=== PATIENT | male | born 1960 | race Caucasian/White ===

== ENCOUNTER 2020-09-28 06:12 | Day surgery (SDC) | payer OTHER, SELFPAY ==
[2020-09-21 15:06] VITALS: BMI 33.6
--- NOTE | 2020-09-24 11:21 | HO.ANESPROP2 ---
Documented by User: Bianka Watts 09/24/20 11:22 HPI - Anesthesia Eval Consult details Narrative: 60yo M for Colonoscopy PMFSH Past Medical History Medical History Anxiety COVID-19 vaccine series completed High cholesterol Hx of gastroesophageal reflux (GERD) Hx of hiatal hernia Hypertension Panic attacks Seasonal allergies Surgical History Surgical History History of esophagogastroduodenoscopy (EGD) Hx of colonoscopy Hx of hand surgery Social History Social History Smoking Status: Never smoker Use of substances other than those prescribed or required for medical reasons: No Have you been hit, kicked, punched, or otherwise hurt by someone within the past year? If so, by whom?: No Are you DNR?: No Advance Directives: No Advance Directives Information Provided: No Advance Directives on File: No Meds Allergies Allergy/AdvReac Type Severity Reaction Status Date / Time No Known Allergies Allergy Verified 09/28/20 07:16 Home Medications Medication Instructions Recorded Confirmed Last Taken Type acetaminophen 2 tab PO Q8H PRN 09/21/20 09/21/20 Unknown History atorvastatin 1 tab PO BEDTIME 09/21/20 09/21/20 Unknown History baclofen 1 tab PO TID PRN 09/21/20 09/21/20 Unknown History bisacodyl tab PO DIRECTED 09/21/20 Unknown History cetirizine 1 tab PO DAILY 09/21/20 09/21/20 Unknown History cholecalciferol (vitamin D3) 1 tab PO DAILY 09/21/20 09/21/20 Unknown History clonazepam [Klonopin] 1 tab PO BID 09/21/20 09/21/20 09/28/20 05:00 History fluticasone propionate 2 spray INTRANASAL DAILY 09/21/20 09/21/20 Unknown History lisinopril 1 tab PO BID 09/21/20 09/21/20 09/28/20 05:00 History multivitamin 1 tab PO DAILY 09/21/20 09/21/20 Unknown History omega-3 acid ethyl esters 1 cap PO BID 09/21/20 09/21/20 Unknown History omega-3 fatty acids-fish oil [Fish 1 cap PO BID 09/21/20 09/21/20 Unknown History Oil] omeprazole 1 cap PO QAM 09/21/20 09/21/20 Unknown History peg [id number] [Dry drp OPHTHALMIC (EYE) 09/21/20 Unknown History Eye Relief] polyethylene glycol 3350 PO DIRECTED 09/21/20 Unknown History polyvinyl alcohol [Artificial 1 drp OPHTHALMIC (EYE) 09/21/20 Unknown History Tears (polyvin alc)] zolpidem 1 tab PO BEDTIME PRN 09/21/20 09/21/20 Unknown History Exam Exam Date and Time: September 24, 2020 1121 Height,Weight and Vital Signs: Height 5 ft 1 in Weight 80.739 kg Assessment and Plan Assessment Anesthesia Assessment: Chart Reviewed Documented by User: Sylvester Cain 09/28/20 07:24 [facility] Past Medical History Medical History Anxiety COVID-19 vaccine series completed High cholesterol Hx of gastroesophageal reflux (GERD) Hx of hiatal hernia Hypertension Panic attacks Seasonal allergies Surgical History Surgical History History of esophagogastroduodenoscopy (EGD) Hx of colonoscopy Hx of hand surgery Social History Social History Smoking Status: Never smoker Use of substances other than those prescribed or required for medical reasons: No Have you been hit, kicked, punched, or otherwise hurt by someone within the past year? If so, by whom?: No Are you DNR?: No Advance Directives: No Advance Directives Information Provided: No Advance Directives on File: No Meds Allergies Allergy/AdvReac Type Severity Reaction Status Date / Time No Known Allergies Allergy Verified 09/28/20 07:16 Home Medications Medication Instructions Recorded Confirmed Last Taken Type acetaminophen 2 tab PO Q8H PRN 09/21/20 09/21/20 Unknown History atorvastatin 1 tab PO BEDTIME 09/21/20 09/21/20 Unknown History baclofen 1 tab PO TID PRN 09/21/20 09/21/20 Unknown History bisacodyl tab PO DIRECTED 09/21/20 Unknown History cetirizine 1 tab PO DAILY 09/21/20 09/21/20 Unknown History cholecalciferol (vitamin D3) 1 tab PO DAILY 09/21/20 09/21/20 Unknown History clonazepam [Klonopin] 1 tab PO BID 09/21/20 09/21/20 09/28/20 05:00 History fluticasone propionate 2 spray INTRANASAL DAILY 09/21/20 09/21/20 Unknown History lisinopril 1 tab PO BID 09/21/20 09/21/20 09/28/20 05:00 History multivitamin 1 tab PO DAILY 09/21/20 09/21/20 Unknown History omega-3 acid ethyl esters 1 cap PO BID 09/21/20 09/21/20 Unknown History omega-3 fatty acids-fish oil [Fish 1 cap PO BID 09/21/20 09/21/20 Unknown History Oil] omeprazole 1 cap PO QAM 09/21/20 09/21/20 Unknown History peg [id number] [Dry drp OPHTHALMIC (EYE) 09/21/20 Unknown History Eye Relief] polyethylene glycol 3350 PO DIRECTED 09/21/20 Unknown History polyvinyl alcohol [Artificial 1 drp OPHTHALMIC (EYE) 09/21/20 Unknown History Tears (polyvin alc)] zolpidem 1 tab PO BEDTIME PRN 09/21/20 09/21/20 Unknown History Exam Airway Mallampati Class: II TM Dist: >3cm Neck ROM: Full
[2020-09-28 06:59] VITALS: BP 137/94; PULSE 107; RESP 18; TEMP 36.5; O2SAT 97
[2020-09-28] MEDS: Lactated Ringers 1,000 ML 100 ML IVCONT (07:15)
[2020-09-28 08:14] VITALS: BP 93/54; PULSE 83; RESP 16; TEMP 36.3; O2SAT 98
--- NOTE | 2020-09-28 08:16 | P.BOP_ITS ---
Brief Operative Note Date of Service: 09/28/20 Pre-op diagnosis: Screening Post-op diagnosis: other (Colon polyps) Procedure: Colonoscopy to the cecum and TI with biopsy and removal of polyps Surgeon: Aleksandr Dejesus Anesthesia: MAC Was an Wastewater Treatment Supervisor used for this Procedure?: No Estimated blood loss (mL): 3.0 Pathology: other (A. Polyps at 20cm) Condition: stable Disposition: PACU
[2020-09-28 08:25] VITALS: BP 104/66; PULSE 97; RESP 16; TEMP 36.3; O2SAT 96
--- NOTE | 2020-09-28 08:42 | OP_ITS ---
SURGEON: Aleksandr Dejesus MD INDICATIONS: The patient presents for evaluation of colorectal cancer screening and personal history of tubular adenoma of the colon. Full consent has been obtained from him for this, including risks of bleeding and perforation. PREOPERATIVE DIAGNOSIS: POSTOPERATIVE DIAGNOSIS: PROCEDURE PERFORMED: Colonoscopy to the cecum and terminal ileum with biopsy and removal of polyps. ESTIMATED BLOOD LOSS: COMPLICATIONS: ANESTHESIA: Monitored anesthesia care. ASSISTANTS: SPECIMENS: PREOPERATIVE DIAGNOSES: Colorectal cancer screening and personal history of tubular adenoma of the colon. POSTOPERATIVE DIAGNOSES: Colorectal cancer screening and personal history of tubular adenoma of the colon, small colon polyps, diverticulosis and internal hemorrhoids. DESCRIPTION OF PROCEDURE: The patient was placed in the left lateral decubitus position. The digital rectal exam revealed no abnormalities. The Olympus video pediatric colonoscope was entered into the rectum and advanced easily to the cecum. Once in the cecum, I did identify normal-appearing cecal pouch with appendiceal orifice and a normal-appearing ileocecal valve. The terminal ileum was cannulated and appeared normal. Scope was withdrawn back in the colon. The entire cecum and ileocecal valve appeared normal. The scope was slowly withdrawn assessing all mucosal surfaces carefully. Preparation was excellent. At 20 cm, were 2 flat approximately 3 mm polyps, which were each biopsied and completely removed with cold biopsy forceps. I did not visualize any other polyps, colitis, nor angiodysplasia. There was a mild amount of sigmoid diverticulosis. In the rectum, scope was retroflexed visualizing small internal hemorrhoids, but no other pathology. The rectal mucosa appeared normal. The scope was straightened out and withdrawn from the patient. He tolerated the procedure well and was returned to the recovery area in stable condition. IMPRESSION: 1. Small colon polyps, status post biopsy and removal. 2. Diverticulosis. 3. Internal hemorrhoids. PLAN: The results of the biopsy will be checked. I would recommend a repeat colonoscopy in 5 years for further surveillance. He will otherwise see me on a p.r.n. basis. MD ALIE Steele/HERB / [id number]
== END 2020-09-28 09:11 | disposition home or self-care (01) ==
PROVIDERS: PCP Family Medicine; Visit Provider Internal Medicine
PROC: 0DJD8ZZ Inspection of Lower Intestinal Tract, Via Natural or Artificial Opening Endoscopic (ICD-10-PCS; CPT 45378; principal; 2020-09-28 07:30)
DX: Z12.11 Encounter for screening for malignant neoplasm of colon (principal); Z86.010 Personal history of colon polyps; D12.5 Benign neoplasm of sigmoid colon; K57.30 Diverticulosis of large intestine without perforation or abscess without bleeding; K64.8 Other hemorrhoids; K21.9 Gastro-esophageal reflux disease without esophagitis; I10 Essential (primary) hypertension; F41.0 Panic disorder [episodic paroxysmal anxiety]; J30.2 Other seasonal allergic rhinitis; Z79.51 Long term (current) use of inhaled steroids; Z79.899 Other long term (current) drug therapy
CPT/HCPCS: 45380; 88305

== ENCOUNTER 2021-08-10 08:26 | Emergency (ER) | payer OTHER, SELFPAY ==
[2021-08-10 08:59] VITALS: BP 158/87; PULSE 99; RESP 20; TEMP 37.1; O2SAT 96; BMI 33.2
--- NOTE | 2021-08-10 09:25 | ED.HA ---
HPI - Headache General Chief Complaint: Headache Stated Complaint: headaches Time Seen by Provider: 08/10/21 09:08 Source: patient Mode of arrival: ambulatory Limitations: no limitations History of Present Illness HPI Narrative: 61-year-old male presents to the ER with left-sided headache, left ear pain, nasal congestion and sinus pressure for the last 2 weeks. He reports it has been worsening slowly over this time. He has seasonal allergies and only takes his medications intermittently. He states the headache is mostly on the left side, dull, aching in nature. He has no vision changes, weakness, tingling, numbness. He states he has normal hearing in his left ear but he feels like it is full and there is pressure. He has green and yellow nasal discharge with pressure in his paranasal sinuses. He denies any fever or chills. No cough, shortness of breath, nausea, vomiting, chest pain. MD elicited complaint: headache Onset (ago): week(s) (2) Onset description: gradually Location: left Severity: mild Pain scale (0-10): 3 Quality & Timing: dull Exacerbating factors: none Relieving factors: nothing Associated symptoms: other (Nasal congestion and left ear pain) Treatments prior to arrival: none Related Data Home Medications Medication Instructions Recorded Confirmed acetaminophen 325 mg tablet 2 tab PO Q8H PRN 09/21/20 09/21/20 atorvastatin 40 mg tablet 1 tab PO BEDTIME 09/21/20 09/21/20 baclofen 10 mg tablet 1 tab PO TID PRN 09/21/20 09/21/20 bisacodyl 5 mg tablet,delayed tab PO DIRECTED 09/21/20 release cetirizine 10 mg tablet 1 tab PO DAILY 09/21/20 09/21/20 cholecalciferol (vitamin D3) 50 1 tab PO DAILY 09/21/20 09/21/20 mcg (2,000 unit) tablet clonazepam 1 mg tablet (Klonopin) 1 tab PO BID 09/21/20 09/21/20 fluticasone propionate 50 2 spray INTRANASAL DAILY 09/21/20 09/21/20 mcg/actuation nasal spray,suspension lisinopril 20 mg tablet 1 tab PO BID 09/21/20 09/21/20 multivitamin 1 tab PO DAILY 09/21/20 09/21/20 omega-3 acid ethyl esters 1 gram 1 cap PO BID 09/21/20 09/21/20 capsule omega-3 fatty acids-fish oil 340 1 cap PO BID 09/21/20 09/21/20 mg-1,000 mg capsule (Fish Oil) omeprazole 20 mg capsule,delayed 1 cap PO QAM 09/21/20 09/21/20 release peg [id number] 1 drp OPHTHALMIC (EYE) 09/21/20 %-0.2 %-0.2 % eye drops (Dry Eye Relief) polyethylene glycol 3350 17 PO DIRECTED 09/21/20 gram/dose oral powder polyvinyl alcohol 1.4 % eye drops 1 drp OPHTHALMIC (EYE) 09/21/20 (Artificial Tears (polyvinyl alcohol)) zolpidem 10 mg tablet 1 tab PO BEDTIME PRN 09/21/20 09/21/20 Previous Rx's Medication Instructions Recorded amoxicillin 875 mg-potassium 1 tab PO Q12H #20 tab 08/10/21 clavulanate 125 mg tablet fluticasone propionate 50 1 spray INTRANASAL BID #16 g 08/10/21 mcg/actuation nasal spray,suspension (Flonase Allergy Relief) Allergies Allergy/AdvReac Type Severity Reaction Status Date / Time No Known Allergies Allergy Verified 09/28/20 07:16 Review of Systems Review of Systems: Constitutional: No Fever, No Chills ENT/Mouth: No sore throat, No Rhinorrhea, No Swallowing Difficulty, +Otalgia, +Sinus pain, No hearing loss Eyes: No Eye Pain, No Swelling, No Redness Cardiovascular: No Chest Pain, No SOB Respiratory: No Cough, No Sputum, No Wheezing, No dyspnea Gastrointestinal: No Nausea, No Vomiting, No abdominal Pain Musculoskeletal: No joint pain, No Myalgias Skin: No Skin Lesions, No rash Neuro: No Weakness, No Numbness, No Dizziness, + Headache Heme/Lymph: No Bruising, No Lymphadenopathy PMFSH Past Medical History Medical History Anxiety COVID-19 vaccine series completed High cholesterol Hx of gastroesophageal reflux (GERD) Hx of hiatal hernia Hypertension Panic attacks Seasonal allergies Surgical History History of esophagogastroduodenoscopy (EGD) Hx of colonoscopy Hx of hand surgery Social History Social History Advance Directives: No Advance Directives Information Provided: Yes Physical Exam Vital Signs: Vital Signs: Last Vital Signs Temp 98.8 F 08/10/21 08:59 Pulse 99 08/10/21 08:59 Resp 20 08/10/21 08:59 BP 158/87 H 08/10/21 08:59 Pulse Ox 96 08/10/21 08:59 BMI result Body Mass Index 33.2 Appearance: Alert. Oriented X3. No acute distress. Eyes: Pupils equal, round and reactive to light. EOMI, no nystagmus ENT: Pharynx normal. Left tympanic membrane with effusion, no bulging or erythema. EACs normal. Nasal turbinates are erythematous and swollen. ethmoid sinus tenderness bilaterally Neck: Normal inspection. Neck supple. No lymphadenopathy CVS: Normal heart rate and rhythm. Pulses normal. Respiratory: No respiratory distress. Breath sounds normal. Abdomen: Soft and nontender. +BS x4 Skin: Skin warm and dry. Normal skin color. Normal skin turgor. No rashes. Extremities: Normal inspection x4 Neuro: Oriented X 3. No motor deficit. No sensory deficit. Course Course Course Narrative: 61-year-old male presents to the ER with 2 weeks of dull left-sided headache, left-sided ear pain, nasal congestion, sinus pressure. His exam and clinical presentation are consistent with sinus infection. Will treat accordingly. He will follow-up with his primary care doctor in the next week or 2. Return precautions were discussed. Stable discharge home. Discharge Plan Discharge Clinical Impression: Sinusitis Patient Disposition: Home, Self-Care Instructions: Sinusitis (ED) Additional Instructions: Take the prescribed antibiotic as directed. Complete the entire course. Using nasal spray 2 times a day for the next 2 weeks. Take your allergy medicine every day. Recommend Motrin or Tylenol as needed for headache and ear pain. Follow-up with your primary care doctor as needed. If you develop new or worsening symptoms call 911 or come back to the ER for further evaluation. Prescriptions: New amoxicillin-pot clavulanate 875-125 mg tablet 1 tab PO Q12H Qty: 20 0RF fluticasone propionate [Flonase Allergy Relief] 50 mcg/actuation spray,suspension 1 spray intranasal BID Qty: 16 0RF Rx Instructions: administer into each nostril No Action multivitamin Tablet 1 tab PO DAILY 0RF atorvastatin 40 mg tablet 1 tab PO BEDTIME 0RF acetaminophen 325 mg tablet 2 tab PO Q8H PRN (Reason: fever) 0RF cetirizine 10 mg tablet 1 tab PO DAILY 0RF polyvinyl alcohol [Artificial Tears (polyvin alc)] 1.4 % drops 1 drp ophthalmic (eye) 0RF lisinopril 20 mg tablet 1 tab PO BID 0RF clonazepam [Klonopin] 1 mg tablet 1 tab PO BID 0RF baclofen 10 mg tablet 1 tab PO TID PRN (Reason: muscle spasm) 0RF omeprazole 20 mg capsule,delayed release(DR/EC) 1 cap PO QAM 0RF bisacodyl 5 mg tablet,delayed release (DR/EC) PO DIRECTED 0RF polyethylene glycol 3350 17 gram/dose powder PO DIRECTED 0RF zolpidem 10 mg tablet 1 tab PO BEDTIME PRN (Reason: Insomnia) 0RF fluticasone propionate 50 mcg/actuation spray,suspension 2 spray intranasal DAILY 0RF Dry Eye Relief 1-0.2-0.2 % drops ophthalmic (eye) 0RF omega-3 acid ethyl esters 1 gram capsule 1 cap PO BID 0RF Fish Oil 340-1,000 mg capsule 1 cap PO BID 0RF cholecalciferol (vitamin D3) 50 mcg (2,000 unit) tablet 1 tab PO DAILY 0RF
== END 2021-08-10 10:12 | disposition home or self-care (01) ==
PROVIDERS: Emergency Provider Emergency Medicine; PCP Family Medicine
DX: J32.9 Chronic sinusitis, unspecified (principal); R51.9 Headache, unspecified; I10 Essential (primary) hypertension; E78.5 Hyperlipidemia, unspecified; Z79.02 Long term (current) use of antithrombotics/antiplatelets; Z79.899 Other long term (current) drug therapy
CPT/HCPCS: 99283; 99284

== ENCOUNTER 2022-08-09 10:26 | Outpatient (REF) | payer OTHER, SELFPAY ==
--- NOTE | ~2022-08-09 | XR_ITS ---
EXAMINATION: XR SHOULDER, RIGHT CLINICAL INFORMATION: Acute pain right shoulder. COMPARISON: None available. TECHNIQUE: Four views of the right shoulder. FINDINGS: The glenohumeral joint space is maintained normal without any bony erosive changes. There is reduction in the right AC joint space with a small avulsion fracture along the superior acromion. There is soft tissue swelling at the joint. No soft tissue calcification seen. XR/XR shoulder RT min 2V IMPRESSION: 1. Small avulsion fracture likely old along the superior acromion with mild soft tissue swelling. 2. The glenohumeral joint is unremarkable.
== END 2022-08-09 10:27 | disposition home or self-care (01) ==
LOC: HO.XRAY 10:26
PROVIDERS: Visit Provider Family Medicine
DX: M25.511 Pain in right shoulder (principal)
CPT/HCPCS: 73030

== ENCOUNTER 2022-12-07 11:39 | Outpatient (REF) | payer OTHER, SELFPAY ==
--- NOTE | ~2022-12-07 | XR_ITS ---
EXAMINATION: XR THORACOLUMBAR SPINE CLINICAL INFORMATION: Chronic low back pain COMPARISON: Same-day lumbar spine TECHNIQUE: AP, lateral and Swimmer's view of the thoracic spine FINDINGS: The bones are diffusely demineralized. The vertebral alignment is normal. Upper thoracic kyphosis is noted. No intrinsic bony abnormality. The neural foramina are well maintained. The posterior elements are normal. There is mild anterior wedge compression of T4-T7. No subluxation. There is multilevel mild disc space narrowing. The surrounding prevertebral soft tissues are unremarkable. XR/XR thoracic spine 2V IMPRESSION: 1. The bones are diffusely demineralized. 2. Mild anterior wedge compression of T4-T7. 3. Multilevel mild disc space narrowing.
--- NOTE | ~2022-12-07 | XR_ITS ---
EXAMINATION: XR LUMBOSACRAL SPINE CLINICAL INFORMATION: Chronic low back pain COMPARISON: None available. TECHNIQUE: Three views of the lumbosacral spine. FINDINGS: There 5 nonrib-bearing lumbar-type vertebral bodies. The height of vertebral bodies is well-maintained. There is no disc space narrowing. Anterior marginal osteophytes are seen at multiple levels. There is degenerative facet joint disease L5-S1. There is minimal retrolisthesis of L4 with respect to L5. There is straightening of the usual lumbar lordosis which can be seen with muscle spasm. XR/XR lumbar spine 2-3V IMPRESSION: 1. Muscle spasm. 2. Minimal retrolisthesis of L4 with respect to L5. 3. Degenerative facet joint disease L5-S1.
== END 2022-12-07 11:40 | disposition home or self-care (01) ==
LOC: HO.HHCX 11:39
PROVIDERS: Visit Provider Family Medicine
DX: M54.50 Low back pain, unspecified (principal); G89.29 Other chronic pain
CPT/HCPCS: 72070; 72100

== ENCOUNTER 2023-06-02 08:02 | Outpatient (REF) | payer OTHER, SELFPAY ==
[2023-06-02 11:20] LABS: MANUAL DIFF FLAG NO
[2023-06-02 11:54] LABS: Basophils Percent Auto 0.6 % (0-2); Eosinophils Absolute Auto 0.2 X10*3/uL (0.0-0.4); Eosinophils Percent Auto 3.5 % (0-4); Hematocrit 42.7 % (42.0-52.0); Hemoglobin 13.6 g/dl (14.0-18.0); Imm Gran Abs Auto 0.02 X10*3/uL (0.00-0.03); Imm Gran Pct Auto 0.3 % (0.0-0.4); Lymphocytes Absolute Auto 2.3 X10*3/uL (1.2-4.9); Lymphocytes Percent Auto 35.1 % (20-40); Mean Corpuscular HGB Conc 31.9 g/dl (31.0-36.0); Mean Corpuscular Hemoglobin 28.9 pg (27.0-33.0); Mean Corpuscular Volume 90.7 fL (80.0-98.0); Mean Platelet Volume 10.6 fL (9.4-12.4); Monocytes Absolute Auto 0.4 X10*3/uL (0.1-1.2); Monocytes Percent Auto 6.4 % (2-11); Neutrophils Absolute Auto 3.5 x10*3/uL (2.0-8.3); Neutrophils Percent Auto 54.1 % (45-73); Platelet Count 279 X10*3/uL (160-400); Red Blood Count 4.71 X10*6/uL (4.60-5.80); Red Cell Distribution Width 14.6 % (11.0-16.0); White Blood Count 6.6 X10*3/uL (4.8-10.8)
[2023-06-02 12:13] LABS: Estimated Average Glucose 120 mg/dL; Hemoglobin A1c % 5.8 % (<6.0)
[2023-06-02 12:23] LABS: Syphilis Screen Nonreactive (Nonreactive)
[2023-06-02 12:27] LABS: Alanine Aminotransferase 30 U/L (0-40); Albumin Level 4.3 g/dL (3.5-5.0); Alkaline Phosphatase 85 U/L (39-117); Anion Gap 14 (12-20); Aspartate Amino Transferase 20 U/L (5-37); Bilirubin Direct 0.1 mg/dL (0.0-0.5); Bilirubin Total 0.4 mg/dL (0.0-1.0); Blood Urea Nitrogen 11 mg/dL (9-16); Calcium 9.6 mg/dL (8.4-10.2); Carbon Dioxide 24 mmol/L (22-29); Chloride 107 mmol/L (96-108); Cholesterol 187 mg/dL (<200); Estimated Glomerular Filt Rate > 60; Glucose Random 94 mg/dL (60-115); HDL Cholesterol 44 mg/dL (>40); LDL Cholesterol Calculated 116 mg/dL (<100); Potassium 4.3 mmol/L (3.3-5.1); Sodium 141 mmol/L (135-145); Total Protein 7.5 g/dL (6.5-8.0); Triglycerides 139 mg/dL (<150)
[2023-06-02 12:28] LABS: HBS Num1 0.15 mIU/mL (0-7.99); HBsAGNum1 0.29 S/CO (0.00-0.99); HIV AB/AG Nonreactive (Nonreactive); HIV Num 1 0.05 S/CO (0.00-0.99); Hepatitis B Surface Antigen Negative (Negative); ~HepC Num1 0.07 S/CO (0.00-0.79); ~Hepatitis B Surface Antibody NONREACTIVE (Nonreactive); ~Hepatitis C Antibody Nonreactive (Nonreactive)
[2023-06-02 12:41] LABS: Creatinine Urine 252.73 mg/dL; Microalbum/Creatinine Ratio Ur 21.3 ug/mg cr (<30)
[2023-06-02 12:45] LABS: Free T4 (Free Thyroxine) 0.84 ng/dL (0.71-1.85); Thyroid Stimulating Hormone 1.58 uIU/mL (0.32-4.0); Vitamin D 25-OH Total 27.4 ng/mL (>30)
[2023-06-02 13:47] LABS: CT PCR NOT DETECTED (Not Detect.); NG PCR NOT DETECTED (Not Detect.)
== END 2023-06-02 08:03 | disposition home or self-care (01) ==
LOC: HO.HHCL 08:02
PROVIDERS: Visit Provider Family Medicine
DX: Z11.4 Encounter for screening for human immunodeficiency virus [HIV] (principal); I10 Essential (primary) hypertension; Z20.2 Contact with and (suspected) exposure to infections with a predominantly sexual mode of transmission
CPT/HCPCS: 0353U; 80048; 80061; 80076; 82043; 82306; 82570; 83036; 84439; 84443; 85025; 86706; 86780; 86803; 87340; 87389

== ENCOUNTER 2023-09-07 10:10 | Outpatient (REF) | payer OTHER, SELFPAY ==
--- NOTE | ~2023-09-07 | MM_ITS ---
EXAMINATION: BONE DENSITOMETRY CLINICAL INDICATION: Demineralization on T-spine x-rays. Evaluate for osteoporosis. COMPARISON: This is the patient's baseline examination. TECHNIQUE: Using a [employer] DXA System (software version: 13.1) manufactured by [employer], dual-energy x-ray absorptiometry was performed of the lumbar spine and left hip. The images are of good technical quality. Summary results are attached. FINDINGS: AP SPINE L1-L4: BMD 1.033 g/cm2, Z-score -1.2, T-score -1.6, osteopenia. LEFT FEMUR, NECK: BMD 0.881 g/cm2, Z-score -0.5, T-score -1.5, osteopenia. LEFT FEMUR, TOTAL: BMD 0.071 g/cm2, Z-score 0.2, T-score -0.2, normal. IDENTIFIED RISK FACTORS: None listed. HISTORY OF FRACTURE: None listed. MEDICATIONS: Calcium, vitamin D. MM/XR DEXA axial skeleton IMPRESSION: 1. DIAGNOSIS: Osteopenia based on the lowest T-score value of -1.6 in the lumbar spine applying World Health Organization criteria. 2. 10-YEAR FRACTURE RISK PREDICTION, FRAX: Major osteoporotic fracture (clinical spine, forearm, hip or shoulder) 3.2%. Hip fracture 0.4%. 3. Treatment Recommendations: NOF guidelines recommend consideration for treatment in postmenopausal women and men age 50 and older presenting with the following: -A hip or vertebral (clinical or morphometric) fracture. -T-score less than or equal to -2.5 at the femoral neck or spine after appropriate evaluation to exclude secondary causes. -Low bone mass at the hip or spine and a 10-year fracture probability by FRAX of greater than or equal to 3% for hip fracture or greater than or equal to 20% for major osteoporotic fracture based on the [place] adapted WHO algorithm. 4. Other Recommendations: All treatment decisions require clinical judgment and consideration of individual patient factors, including patient preferences, comorbidities, previous drug use, risk factors not captured in the FRAX model (e.g. frailty, falls, vitamin D deficiency, increased bone turnover, interval significant decline in bone density) and possible under or overestimation of fracture risk by FRAX. Additional medical evaluation for secondary cause of low bone mineral density may be appropriate. FUTURE SCAN RECOMMENDATION: People with diagnosed cases of osteoporosis or at high risk for fracture should have regular bone mineral density tests. For patients eligible for Medicare, routine testing is allowed once every 2 years. The testing frequency can be increased to one year for patients who have rapidly progressing disease, those who are receiving or discontinuing medical therapy to restore bone mass, or have additional risk factors.
== END 2023-09-07 10:11 | disposition home or self-care (01) ==
LOC: HO.MAMMO 10:10
PROVIDERS: PCP Family Medicine; Visit Provider Family Medicine
DX: Z13.820 Encounter for screening for osteoporosis (principal); R93.7 Abnormal findings on diagnostic imaging of other parts of musculoskeletal system; M85.852 Other specified disorders of bone density and structure, left thigh
CPT/HCPCS: 77080